=== PATIENT | male | born 2000 | race Caucasian/White ===

== ENCOUNTER 2023-09-07 13:21 | Outpatient (REF) | payer MEDICAID, SELFPAY ==
--- NOTE | 2023-09-07 14:42 | EEG_ITS ---
This is a 16 channel EEG with an EKG lead. The patient is reported awake and drowsy and sometimes sleeping during the tracing. Background EEG rhythm is about 10 to 12 hertz 5 to 20 microvolt posteriorly, lower amplitude fast anteriorly. Photic stimulation does not produce any significant abnormality. Hyperventilation is unremarkable. Cardiac lead does not reveal any significant abnormality. No definite sharp wave spikes or paroxysmal tendency noted. IMPRESSION: Unremarkable EEG. MD CLARICE Draper/BENNIE / [id number]
== END 2023-09-07 13:22 | disposition home or self-care (01) ==
LOC: HO.NEURO 13:21
PROVIDERS: Visit Provider Psychiatry & Neurology Neurology
DX: R25.3 Fasciculation (principal)
CPT/HCPCS: 95816